=== PATIENT | female | born 1990 | race Hispanic/Latino ===

== ENCOUNTER 2021-04-24 18:30 | Emergency (ER) | payer OTHER ==
[2021-04-24] MEDS ORDERED: MORPHINE 4 MG/1 ML INJ IV ONE (18:58)
[2021-04-24] MEDS ORDERED: diphenhydrAMINE 50 MG/ML VIAL IV ONE (18:58)
[2021-04-24] MEDS ORDERED: METOCLOPRAMIDE 10 MG/2 ML INJ IV ONE (18:58)
--- NOTE | 2021-04-24 19:12 | Event Note ---
ED Screening Note Date of service: 04/24/21 Time: 19:11 ED Screening Note: Patient presents with complaints of sudden onset of mid/lower abdominal pain today She is 17 weeks and following with [facility] [employer] [facility] She denies any vaginal bleeding or urinary symptoms She is G1, No prior medical history per patient Patient appears very uncomfortable This initial assessment/diagnostic orders/clinical plan/treatment(s) is/are subject to change based on patients health status, clinical progression and re- assessment by fellow clinical providers in the ED. Further treatment and workup at subsequent clinical providers discretion. Patient/guardian urged not to elope from the ED as their condition may be serious if not clinically assessed and managed. Initial orders include: Labs Minutes Ultrasound-attempted to contact ultrasound several times, however there was no answer
--- NOTE | 2021-04-24 20:18 | Ultrasound Report ---
ULTRASOUND OBSTETRIC Indication: acute severe pain Findings: There is a single intrauterine . BPD = 3.7 cm = 17 weeks, 3 day(s). Head circumference = 13.5 cm = 17 weeks, 0 day(s). Abdominal circumference = 12.5 cm = 18 weeks, 1 day(s). Femur length = 2.3 cm = 17 weeks, 0 day(s). Overall estimated sonographic age = 17 weeks, 3 day(s). heart rate is 187 beats per minute. Estimated weight is 197 grams position is cephalic. Cervix appears closed. movement is present. Placenta is right lateral and grade 0 . Impression: 1. Single living intrauterine with estimated sonographic age of 17 weeks, 3 day(s). Signer Name: Rene Crum MD Signed: 04/24/2021 8:13 PM Workstation Name: [id number]
[2021-04-24 20:56] LABS: Hematocrit 38.2 % (30.3-42.9); Hemoglobin 12.8 gm/dl (10.1-14.3); Mean Corpuscular HGB Conc 34 % (30-34); Mean Corpuscular Volume 89 fl (79-97); Platelet Count 259 K/mm3 (140-440); Red Blood Count 4.29 M/mm3 (3.65-5.03); Red Cell Distribution Width 12.6 % (13.2-15.2)
[2021-04-24 21:05] LABS: Alanine Aminotransferase 37 units/L (7-56); Albumin 3.8 g/dL (3.9-5); Blood Urea Nitrogen 8 mg/dL (7-17); Calcium 9.9 mg/dL (8.4-10.2); Hemolysis Index 7
[2021-04-24 21:12] LABS: BUN/Creatinine Ratio 13
--- NOTE | 2021-04-24 21:29 | Emergency Department Report ---
ED General Adult HPI - General Chief complaint: Abdominal Pain Stated complaint: Abdominal pain. Nausea and vomiting. I am hungry, can I eat? Time Seen by Provider: 04/24/21 18:58 Source: patient, EMS, RN notes reviewed Mode of arrival: Ambulatory Limitations: No Limitations - History of Present Illness Initial comments: The patient was evaluated in the emergency department for symptoms described in the history of present illness. He/she was evaluated in the context of the global COVID-19 pandemic, which necessitated consideration that the patient might be at risk for infection with the virus that causes COVID-19. Institutional protocols and algorithms that pertain to the evaluation of patients at risk for COVID-19 are in a state of rapid change based on information released by regulatory bodies including the CDC and federal and state organizations. These policies and algorithms were followed during the patient's care in the emergency department. Please note that these policies, procedures and recommendations changed on a rapid basis. PET CARE TECHNICIAN: [place] Patient is a 30-year-old female, who is 1, para 0, at approximately 17 weeks gestation, who denies chronic medical issues, who reports that she is not COVID-19 vaccinated, presenting to the ER today with a complaint of supraumbilical abdominal pain, paralumbar back pain, which sometimes radiates down the right flank, with nausea, vomiting, now resolved. No fever, chills, chest pain, shortness of breath or dysuria. No hematuria. Patient given morphine and Zofran prior to my personal evaluation. On initial evaluation, she is sitting on the stretcher, and she is in no acute distress. She reports that she is currently mildly nauseous, but also hungry and thirsty, and asking to eat/drink. Has not had significant issues with nausea or vomiting during this . No history of abdominal surgeries. -: Gradual, hour(s) Location: back, abdomen Radiation: flank Severity scale (0 -10): 5 Quality: aching Consistency: intermittent Improves with: medication Worsens with: none - Related Data Previous Rx's Medication Instructions Recorded Last Taken Type Acetaminophen [Non-Aspirin Extra 500 mg PO Q6HR PRN #30 tablet 04/24/21 Unknown Rx Strength] Doxylamine Succinate/Vit B6 1 each PO QHS PRN #30 tablet. 04/24/21 Unknown Rx [Maura Baires 10-10 mg Tablet] Wily Root [Wily] 250 mg PO QID PRN #30 capsule 04/24/21 Unknown Rx Metoclopramide [Reglan] 10 mg PO QID PRN #30 tablet 04/24/21 Unknown Rx Nitrofurantoin [place]/M-Cryst 100 mg PO Q12HR #13 capsule 04/24/21 Unknown Rx [Macrobid CAP] Vit-Fe Fumar-FA [ 1 tab PO QDAY #30 tablet 04/24/21 Unknown Rx Vitamin] Allergies Allergy/AdvReac Type Severity Reaction Status Date / Time codeine Allergy Hives Verified 04/24/21 18:49 hydrocodone Allergy Hives Verified 04/24/21 18:49 ED Review of Systems ROS: Stated complaint: ABD PAIN/ 19 WEEKS Other details as noted in HPI Constitutional: denies: fever, malaise, weakness Eyes: denies: eye discharge ENT: denies: epistaxis Respiratory: denies: cough Cardiovascular: denies: chest pain Gastrointestinal: abdominal pain, nausea, vomiting. denies: diarrhea Genitourinary: denies: dysuria Musculoskeletal: back pain Neurological: denies: weakness ED Past Medical Hx - Past Medical History Hx Hypertension: Yes Hx Asthma: Yes - Medications Home Medications: Home Medications Medication Instructions Recorded Confirmed Last Taken Type Acetaminophen [Non-Aspirin Extra 500 mg PO Q6HR PRN #30 tablet 04/24/21 Unknown Rx Strength] Doxylamine Succinate/Vit B6 1 each PO QHS PRN #30 tablet. 04/24/21 Unknown Rx [Maura Baires 10-10 mg Tablet] Wily Root [Wily] 250 mg PO QID PRN #30 capsule 04/24/21 Unknown Rx Metoclopramide [Reglan] 10 mg PO QID PRN #30 tablet 04/24/21 Unknown Rx Nitrofurantoin [place]/M-Cryst 100 mg PO Q12HR #13 capsule 04/24/21 Unknown Rx [Macrobid CAP] Vit-Fe Fumar-FA [ 1 tab PO QDAY #30 tablet 04/24/21 Unknown Rx Vitamin] ED Physical Exam - General Limitations: No Limitations General appearance: alert, in no apparent distress - Head Head exam: Present: atraumatic, normocephalic - Eye Eye exam: Present: normal appearance, EOMI. Absent: nystagmus - ENT ENT exam: Present: normal exam, normal orophraynx, mucous membranes moist, normal external ear exam - Neck Neck exam: Present: normal inspection, full ROM. Absent: tenderness, meningismus - Respiratory Respiratory exam: Present: normal lung sounds bilaterally. Absent: respiratory distress, wheezes, rales, rhonchi, stridor, decreased breath sounds - Cardiovascular Cardiovascular Exam: Present: regular rate, normal rhythm, normal heart sounds. Absent: bradycardia, tachycardia, irregular rhythm, systolic murmur, diastolic murmur, rubs, gallop - GI/Abdominal GI/Abdominal exam: Present: soft, other (There is no right lower quadrant tenderness. There is no right upper quadrant tenderness. There is a negative Rovsing sign. There is negative Gee sign.). Absent: distended, tenderness, guarding, rebound, rigid, pulsatile mass - Extremities Exam Extremities exam: Present: normal inspection, full ROM, other (2+ pulses noted in the bilateral upper and lower extremities. There is no palpable cord. negative Homans sign. Muscular compartments are soft. The pelvis is stable.). Absent: pedal edema, calf tenderness - Back Exam Back exam: Present: normal inspection, full ROM. Absent: tenderness, CVA tenderness (R), CVA tenderness (L), paraspinal tenderness, vertebral tenderness - Neurological Exam Neurological exam: Present: alert, oriented X3, normal gait, other (No facial droop. Tongue midline. Extraocular movements intact bilaterally. Facial sensation intact to light touch in V1, V2, V3 distribution bilaterally. 5 and a 5 strength in 4 extremities. Sensation intact to light touch in 4 extremities.). Absent: motor sensory deficit - Psychiatric Psychiatric exam: Present: anxious - Skin Skin exam: Present: warm, dry, intact, normal color. Absent: rash ED Course Vital Signs 04/24/21 04/24/21 04/24/21 18:49 22:50 23:15 Temperature 98.9 F 99.5 F 99.3 F Pulse Rate 110 H 101 H 76 Respiratory 19 18 18 Rate Blood Pressure 115/70 107/61 107/61 [Left] O2 Sat by Pulse 98 97 100 Oximetry - Reevaluation(s) Reevaluation #1: 04/24/21 21:59 Differential diagnosis, including but not limited to: Urinary tract infection, pyelonephritis, renal colic, round ligament pain, ovarian cyst, constipation Assessment and plan: 30-year-old female, who was afebrile, with reassuring vital signs, no tachycardia on my examination, who on my initial assessment, is sleeping comfortably on her stretcher, and in no acute distress. She does not have active nausea or vomiting. With distracted examination, there is no abdominal tenderness, rebound, guarding or peritoneal signs. Laboratory studies nonactionable, obstetrics ultrasound unremarkable, urinalysis is pending. In addition, I performed a bedside [id number] right renal ultrasound, which did not demonstrate any significant fluid collection, or hydronephrosis. Patient appears quite comfortable, and has asked to eat/drink. She also states that she has a lot of pain and nausea. Have ordered oral Tylenol, as well as or al Zofran. I have also personally provided this patient with juice and robin crackers. Urinalysis is pending at this time. Reassess after urinalysis has resulted, and oral trial. 04/24/21 22:38 Patient reassessed multiple times. She is in no acute distress. She ate crackers without difficulty, and drank apple juice without difficulty. Urinalysis demonstrates 1+ bacteriuria, and is otherwise unremarkable. Tachycardia improved, belly soft on repeat exam, suitable for discharge with outpatient follow-up. Return precautions are reviewed ED Medical Decision Making - Lab Data Result diagrams: 04/24/21 18:59 04/24/21 18:59 Vital Signs 04/24/21 18:49 Temperature 98.9 F Pulse Rate 110 H Respiratory 19 Rate Blood Pressure 115/70 [Left] O2 Sat by Pulse 98 Oximetry Lab Results 04/24/21 04/24/21 04/24/21 Range/Units 18:59 18:59 18:59 WBC 10.8 (4.5-11.0) K/mm3 RBC 4.29 (3.65-5.03) M/mm3 Hgb 12.8 (10.1-14.3) gm/dl Hct 38.2 (30.3-42.9) % MCV 89 (79-97) fl MCH 30 (28-32) pg MCHC 34 (30-34) % RDW 12.6 L (13.2-15.2) % Plt Count 259 (140-440) K/mm3 Add Manual Diff Complete Total Counted 100 Seg Neuts % (Manual) 86.0 H (40.0-70.0) % Band Neutrophils % 0 % Lymphocytes % (Manual) 7.0 L (13.4-35.0) % Reactive Lymphs % (Man) 0 % Monocytes % (Manual) 4.0 (0.0-7.3) % Eosinophils % (Manual) 3.0 (0.0-4.3) % Basophils % (Manual) 0 (0.0-1.8) % Metamyelocytes % 0 % Myelocytes % 0 % Promyelocytes % 0 % Blast Cells % 0 % Nucleated RBC % Not Reportable Seg Neutrophils # Man 9.3 H (1.8-7.7) K/mm3 Band Neutrophils # 0.0 K/mm3 Lymphocytes # (Manual) 0.8 L (1.2-5.4) K/mm3 Abs React Lymphs (Man) 0.0 K/mm3 Monocytes # (Manual) 0.4 (0.0-0.8) K/mm3 Eosinophils # (Manual) 0.3 (0.0-0.4) K/mm3 Basophils # (Manual) 0.0 (0.0-0.1) K/mm3 Metamyelocytes # 0.0 K/mm3 Myelocytes # 0.0 K/mm3 Promyelocytes # 0.0 K/mm3 Blast Cells # 0.0 K/mm3 WBC Morphology Not Reportable Hypersegmented Neuts Not Reportable Hyposegmented Neuts Not Reportable Hypogranular Neuts Not Reportable Smudge Cells Not Reportable Toxic Granulation Not Reportable Toxic Vacuolation Not Reportable Dohle Bodies Not Reportable Pelger-Huet Anomaly Not Reportable Shana Rods Not Reportable Platelet Estimate Not Reportable Clumped Platelets Not Reportable Plt Clumps, EDTA Not Reportable Large Platelets Not Reportable Giant Platelets Not Reportable Platelet Satelliting Not Reportable Plt Morphology Comment Not Reportable RBC Morphology Normal Dimorphic RBCs Not Reportable Polychromasia Not Reportable Hypochromasia Not Reportable Poikilocytosis Not Reportable Anisocytosis Not Reportable Microcytosis Not Reportable Macrocytosis Not Reportable Spherocytes Not Reportable Pappenheimer Bodies Not Reportable Sickle Cells Not Reportable Target Cells Not Reportable Tear Drop Cells Not Reportable Ovalocytes Not Reportable Helmet Cells Not Reportable Moore-Mosby Bodies Not Reportable Chandler Rings Not Reportable Susana Cells Not Reportable Bite Cells Not Reportable Crenated Cell Not Reportable Elliptocytes Not Reportable Acanthocytes (Spur) Not Reportable Rouleaux Not Reportable Hemoglobin C Crystals Not Reportable Schistocytes Not Reportable Malaria parasites Not Reportable Leonid Bodies Not Reportable Hem Pathologist Commnt No Sodium 134 L (137-145) mmol/L Potassium 3.6 (3.6-5.0) mmol/L Chloride 98.6 (98-107) mmol/L Carbon Dioxide 19 L (22-30) mmol/L Anion Gap 20 mmol/L BUN 8 (7-17) mg/dL Creatinine 0.6 (0.6-1.2) mg/dL Estimated GFR > 60 ml/min BUN/Creatinine Ratio 13 % Glucose 95 (65-100) mg/dL Calcium 9.9 (8.4-10.2) mg/dL Total Bilirubin < 0.20 (0.1-1.2) mg/dL AST 30 (5-40) units/L ALT 37 (7-56) units/L Alkaline Phosphatase 93 (35-129) units/L Total Protein 7.3 (6.3-8.2) g/dL Albumin 3.8 L (3.9-5) g/dL Albumin/Globulin Ratio 1.1 % Lipase 29 (13-60) units/L HCG, Qual Positive (Negative) - Radiology Data Radiology results: report reviewed, image reviewed ULTRASOUND OBSTETRIC Indication: acute severe pain Findings: There is a single intrauterine . BPD = 3.7 cm = 17 weeks, 3 day(s). Head circumference = 13.5 cm = 17 weeks, 0 day(s). Abdominal circumference = 12.5 cm = 18 weeks, 1 day(s). Femur length = 2.3 cm = 17 weeks, 0 day(s). Overall estimated sonographic age = 17 weeks, 3 day(s). heart rate is 187 beats per minute. Estimated weight is 197 grams position is cephalic. Cervix appears closed. movement is present. Placenta is right lateral and grade 0 . Impression: 1. Single living intrauterine with estimated sonographic age of 17 weeks, 3 day(s). Signer Name: Rene Crum MD Signed: 04/24/2021 7:13 PM Workstation Name: [id number] Critical care attestation.: If time is entered above; I have spent that time in minutes in the direct care of this critically ill patient, excluding procedure time. ED Disposition Clinical Impression: Abdominal pain during , History of nausea and vomiting, ASB (asymptom atic bacteriuria) Disposition: 01 HOME / SELF CARE / HOMELESS Is pt being admited?: No Does the pt Need Aspirin: No Condition: Good Instructions: Round Ligament Pain, Asymptomatic Bacteriuria, Abdominal Pain (ED) Additional Instructions: Advance diet as tolerated. Drink plenty of fluids. Patient may take acetaminophen for pain, and diclegis, Reglan, wily as needed for nausea and vomiting Patient found to have bacteria in the urine, please take the antibiotics as directed. Please take the vitamins as directed. Suspect that patient having round ligament pain secondary to . Please follow-up with your PET CARE TECHNICIAN doctor in 2 to 5 days for repeat checkup and evaluation. Please return to the emergency room right away with new pain, worsened pain, migration of pain, projectile vomiting, change in mental status, confusion, inability tolerate liquid feeds, new, worsened or different symptoms not present on the initial emergency room evaluation Prescriptions: Doxylamine Succinate/Vit B6 [Diclegis Dr 10-10 mg Tablet] 1 each PO QHS PRN #30 tablet.dr PRN Reason: Nausea Wily Root [Wily] 250 mg PO QID PRN #30 capsule PRN Reason: Nausea Nitrofurantoin [place]/M-Cryst [Macrobid CAP] 100 mg PO Q12HR #13 capsule Acetaminophen [Non-Aspirin Extra Strength] 500 mg PO Q6HR PRN #30 tablet PRN Reason: Pain , Severe (7-10) Vit-Fe Fumar-FA [ Vitamin] 1 tab PO QDAY #30 tablet Metoclopramide [Reglan] 10 mg PO QID PRN #30 tablet PRN Reason: Nausea Referrals: [facility] [Provider Group] - 3-5 Days Forms: Work/School Release Form(ED)
[2021-04-24 21:52] LABS: Basophils % (Manual) 0 % (0.0-1.8); RBC Morphology Normal; Total Cells Counted 100
[2021-04-24] MEDS ORDERED: ONDANSETRON 4 MG ODT TAB PO ONE (21:53)
[2021-04-24] MEDS ORDERED: ACETAMINOPHEN 325 MG TAB PO ONE (21:53)
[2021-04-24 22:20] LABS: Bacteria,Urine 1+ /HPF (Negative); Bilirubin,Urine NEG (Negative); Blood,Urine NEG (Negative); Color,Urine Yellow (Yellow); Mucus,Urine FEW /HPF; Protein,Urine <15 mg/dL mg/dL (Negative); Urobilinogen,Urine < 2.0 mg/dL (<2.0)
[2021-04-24] MEDS ORDERED: NITROFURANTOIN MONOHYD/M-CRYST 100 MG CAP PO ONE (22:39)
[2021-04-24 22:51] VITALS: BP 107/61
== END 2021-04-24 23:15 | disposition home or self-care (01) ==
LOC: ED 18:30
DX: O26.92 Pregnancy related conditions, unspecified, second trimester (principal); R82.71 Bacteriuria; R10.9 Unspecified abdominal pain; O21.8 Other vomiting complicating pregnancy; I10 Essential (primary) hypertension; J45.909 Unspecified asthma, uncomplicated; Z79.82 Long term (current) use of aspirin; Z91.09 Other allergy status, other than to drugs and biological substances; Z79.899 Other long term (current) drug therapy; Z3A.17 17 weeks gestation of pregnancy
CPT/HCPCS: 36415; 76805; 80053; 81001; 83690; 84703; 85007; 85025; 96374; 96375; 99284; J1200; J2270; J2765; J3490; Q0162